=== PATIENT | male | born 1955 | race Caucasian/White ===

== ENCOUNTER → 2016-09-09 | Outpatient (CLI) | payer OTHER ==
[~2016-09-09] MED LIST: EZET10 PO; TELM40 PO
[2016-09-09 09:00] LABS: AUTOMATED NEUTROPHIL # 4.3 TH/MM3 (1.8-7.7); BASOPHIL % 0.4 % (0.0-2.0); EOSINOPHIL # 0.2 TH/MM3 (0-0.4); EOSINOPHIL % 2.7 % (0.0-4.0); HEMATOCRIT 43.3 % (39.0-51.0); HEMO FLAGS DIFF FINAL; LYMPH % 11.3 % (9.0-44.0); LYMPHOCYTE # 0.6 TH/MM3 (1.0-4.8); MEAN CELL VOLUME 94.1 FL (80.0-100.0); MEAN CORPUSCULAR HEMOGLOBIN 31.4 PG (27.0-34.0); MEAN CORPUSCULAR HGB CONC 33.3 % (32.0-36.0); MONO % 9.2 % (0.0-8.0); NEUT % 76.4 % (16.0-70.0); PLATELET COUNT 167 TH/MM3 (150-450); RED BLOOD COUNT 4.61 MIL/MM3 (4.50-5.90); WHITE BLOOD COUNT 5.6 TH/MM3 (4.0-11.0)
[2016-09-09 13:26] LABS: ANION GAP 7 MEQ/L (5-15); AST (GOT) 25 U/L (15-37); BICARBONATE 29.8 MEQ/L (21.0-32.0); BLOOD UREA NITROGEN 10 MG/DL (7-18); CHLORIDE 106 MEQ/L (98-107); GLOMERULAR FILTRATION RATE 83 ML/MIN (>89); POTASSIUM 4.1 MEQ/L (3.5-5.1); SODIUM (NA) 143 MEQ/L (136-145)
[2016-09-09 13:29] LABS: ALKALINE PHOSPHATASE 81 U/L (45-117); ALT (GPT) 21 U/L (12-78); HDL CHOLESTEROL 56.8 MG/DL (40.0-60.0); LDL CHOLESTEROL 123 MG/DL (0-99); TOTAL BILIRUBIN ADULT 0.8 MG/DL (0.2-1.0)
== END ==
LOC: OLAB 08:20
PROVIDERS: ATTEND Family Medicine
DX: E78.89 Other lipoprotein metabolism disorders (principal); I12.9 Hypertensive chronic kidney disease with stage 1 through stage 4 chronic kidney disease, or unspecified chronic kidney disease; N18.2 Chronic kidney disease, stage 2 (mild); Z12.5 Encounter for screening for malignant neoplasm of prostate
CPT/HCPCS: 80053; 80061; 84153; 85025

== ENCOUNTER → 2017-03-26 | Outpatient (CLI) | payer OTHER ==
[2017-03-26 13:21] LABS: BASOPHIL % 0.9 % (0.0-2.0); EOSINOPHIL # 0.2 TH/MM3 (0-0.4); EOSINOPHIL % 3.5 % (0.0-4.0); HEMATOCRIT 40.8 % (39.0-51.0); HEMOGLOBIN 14.1 GM/DL (13.0-17.0); LYMPH % 11.1 % (9.0-44.0); LYMPHOCYTE # 0.6 TH/MM3 (1.0-4.8); MEAN CELL VOLUME 94.9 FL (80.0-100.0); MEAN CORPUSCULAR HEMOGLOBIN 32.7 PG (27.0-34.0); MEAN CORPUSCULAR HGB CONC 34.4 % (32.0-36.0); MEAN PLATELET VOLUME 9.3 FL (7.0-11.0); MONO % 9.9 % (0.0-8.0); MONOCYTE # 0.5 TH/MM3 (0-0.9); NEUT % 74.6 % (16.0-70.0); PLATELET COUNT 181 TH/MM3 (150-450); RED CELL DISTRIBUTION WIDTH 13.2 % (11.6-17.2); WHITE BLOOD COUNT 5.3 TH/MM3 (4.0-11.0)
[2017-03-26 14:02] LABS: ALBUMIN 3.6 GM/DL (3.4-5.0); ALT (GPT) 36 U/L (12-78); AST (GOT) 38 U/L (15-37); BICARBONATE 27.1 MEQ/L (21.0-32.0); BLOOD UREA NITROGEN 14 MG/DL (7-18); CALCIUM 8.9 MG/DL (8.5-10.1); CHLORIDE 106 MEQ/L (98-107); CHOLESTEROL 202 MG/DL (120-200); CREATININE 0.86 MG/DL (0.60-1.30); GLOMERULAR FILTRATION RATE 90 ML/MIN (>89); GLUCOSE,FASTING 98 MG/DL (74-99); SODIUM (NA) 140 MEQ/L (136-145)
[2017-03-26 14:05] LABS: ALKALINE PHOSPHATASE 87 U/L (45-117); CHOLESTEROL/ HDL RATIO 2.97 RATIO; HDL CHOLESTEROL 67.8 MG/DL (40.0-60.0); LDL CHOLESTEROL 120 MG/DL (0-99); LDL CHOLESTEROL DIRECT 120 MG/DL (0-99); TOTAL BILIRUBIN ADULT 0.5 MG/DL (0.2-1.0); TOTAL PROTEIN 7.2 GM/DL (6.4-8.2); TRIGLYCERIDES 70 MG/DL (42-150)
== END ==
LOC: OLAB 08:06
PROVIDERS: ATTEND Family Medicine
DX: I10 Essential (primary) hypertension (principal); E78.00 Pure hypercholesterolemia, unspecified
CPT/HCPCS: 80053; 80061; 83721; 85025